=== PATIENT | female | born 1990 | race Caucasian/White ===

== ENCOUNTER 2025-02-01 14:18 | Observation (INO) | payer OTHER ==
[~2025-02-01] VITALS: Ht 162.6 cm; Wt 102.3 kg
[2025-02-01 16:26] LABS: BASOPHILS 0.2 % (0.1-1.2); EOSINOPHILS 0.1 % (0.7-5.8); LYMPHOCYTES 7.6 % (19.3-51.7); MCH 28.1 PG (25.6-32.2); MCHC 33.7 g/dL (32.2-35.5); MCV 83.2 fL (79.4-94.8); MONOCYTES 3.7 % (4.7-12.5); NEUTROPHILS 87.9 % (34.0-71.1); RBC 5.24 M/uL (3.93-5.22)
[2025-02-01 16:42] LABS: ALT (SGPT) 27.0 U/L (14-59); AST (SGOT) 17.0 U/L (15-37); GLOMERULAR FILTRATION RATE,EST 107.0 mL/min (>60); PROTEIN, TOTAL 8.1 g/dL (6.4-8.2); UREA NITROGEN 12.0 mg/dL (7-18)
[2025-02-01] MEDS ORDERED: SEVOFLURANE 250 ML BTL INH ONE (16:57)
[2025-02-01 17:13] LABS: BLOOD/HGB, URINE NEGATIVE (Negative); KETONE, URINE NEGATIVE (Negative); LEUK ESTERASE, URINE NEGATIVE (negative); NITRITE, URINE NEGATIVE (negative)
[2025-02-01] MEDS ORDERED: HYDROmorphone HCL 1 MG/ML SYR IV PRN ×3 (18:45→22:15)
[2025-02-01] MEDS ORDERED: SODIUM CHLORIDE 0.9% 1,000 ML IV ONE (18:45)
[2025-02-01] MEDS ORDERED: LACTATED RINGER'S 1,000 ML IV ONE (20:15)
[2025-02-01] MEDS ORDERED: PIPERACILLIN/TAZOBACTAM 4.5 GM in SODIUM CHLORIDE 0.9% 100 ML IV ONE (20:15)
[2025-02-01] MEDS ORDERED: LIDOCAINE HCL 2% 5 ML SDV ONE (21:09)
[2025-02-01] MEDS ORDERED: ROCURONIUM BROMIDE 50 MG/5 ML SYR ONE (21:09)
[2025-02-01] MEDS ORDERED: fentaNYL citrate 100 MCG/2 ML VIAL ONE (21:09)
[2025-02-01] MEDS ORDERED: MIDAZOLAM HCL 2 MG/2 ML VIAL ONE (21:09)
[2025-02-01] MEDS ORDERED: DEXAMETHASONE SOD PHOS 4 MG/ML VIAL ONE (21:30)
[2025-02-01] MEDS ORDERED: PHENYLEPHRINE HCL IN 0.9% NACL 1 MG/10 ML SYR ONE (21:36)
[2025-02-01] MEDS ORDERED: ACETAMINOPHEN 1,000 MG/100 ML VIAL ONE (21:39)
[2025-02-01] MEDS ORDERED: SUGAMMADEX SODIUM 200 MG/2 ML ML ONE (21:57)
[2025-02-01] MEDS ORDERED: METOCLOPRAMIDE HCL 10 MG/2 ML SDV IV PRN (22:00)
[2025-02-01] MEDS ORDERED: fentaNYL citrate 50 MCG/ML SDV IV PRN (22:00)
[2025-02-01] MEDS ORDERED: IBLOOD GLUCOSE TEST STRIP 1 EA TEST VI PRN (22:00)
[2025-02-01] MEDS ORDERED: NALOXONE HCL 0.4 MG SYR IV PRN ×2 (22:00→22:15)
[2025-02-01] MEDS ORDERED: HYDROCODONE/ACETA 5/325 TAB PO PRN (22:15)
[2025-02-01] MEDS ORDERED: LACTATED RINGER'S 1,000 ML IV SCH (22:15)
[2025-02-01] MEDS ORDERED: ACETAMINOPHEN 325 MG TAB PO PRN (22:15)
--- NOTE | 2025-02-01 22:15 | NUR ---
02/01/25 2218 Mary Albarado PATIENT ARRIVES IN PACU WITH ORAL AIRWAY IN PLACE.
[2025-02-01 23:10] VITALS: BP 151/83
--- NOTE | 2025-02-01 23:40 | NUR ---
PATIENT GIVEN WATER TO SIP, TOLERATING WELL. ASSESSMENT COMPLETED. PATIENT REPORTS 7/10 PAIN BUT MORE COMFORTABLE. SHE DENIES ANY FURTHER NEEDS, IVF CONTINUING TO INFUSE WITHOUT DIFFICULTY. CALL LIGHT IN REACH
[2025-02-02] VITALS (9 sets, daily range): BP systolic 104–125; BP diastolic 67–75
--- NOTE | 2025-02-02 01:39 | NUR ---
ASSISTED PATIENT TO RESTROOM, BACK TO BED WITHOUT DIFFICULTY. IVF CONTINUING TO INFUSE WITHOUT DIFFICULTY. VS OBTAINED AND RECORDED, INTAKE AND OUTPUT DOCUMENTED. GIVEN CRACKERS AND FRESH WATER TO ADVANCE DIET, SHE DENIES ANY NAUSEA. CALL LIGHT IN REACH
--- NOTE | 2025-02-02 03:54 | NUR ---
ROUNDED ON PATIENT, RESPIRATIONS EVEN AND UNLABORED. CPOX AT BEDSIDE, PATIENT ON RA. NO NEEDS IDENTIFIED, CALL LIGHT IN REACH.
--- NOTE | 2025-02-02 05:57 | NUR ---
SCHEDULED MEDICATIONS GIVEN TO PATIENT PER ORDER, VS OBTAINED AND RECORDED. INTAKE AND OUTPUT DOCUMENTED. PATIENT UP TO RESTROOM, BACK TO BED. PRN PAIN MEDICATION GIVEN TO PATIENT ALONG WITH JELLO. PATIENT TOLERATED ALL FOOD AND WATER WELL. PATIENT DENIES OTHER NEEDS, CALL LIGHT IN REACH
[2025-02-02] MEDS ORDERED: PIPERACILLIN/TAZOBACTAM 4.5 GM in DEXTROSE 5% 100 ML IV SCH (06:00)
--- NOTE | 2025-02-02 07:09 | NUR ---
VERBAL REPORT RECEIVED FROM ANDRADE DEL VALLE. PT RESTS IN BED WITH EYES CLOSED, RESP EVEN AND UNLABORED.
--- NOTE | 2025-02-02 08:55 | NUR ---
PT RESTS IN BED AWAKE AND ALERT. EATS BREAKFAST, TOLERATES THIS WELL, DENIES NAUSEA. MOTHER AT BEDSIDE. CALL LIGHT IN REACH, NO REQUESTS AT THIS TIME.
--- NOTE | 2025-02-02 09:25 | NUR ---
pt resting in bed with head up, alert AND AWAKE. PT HAS A VISITOR IN THE ROOM SITTING IN THE CHAIR. PT REPORTS PAIN IS "BEARABLE", NO DIZZSINESS. GOT THE PT A FRESH ICE PACK FOR THE SURGICAL SITE, ALSO FRESH ICE WATER. ROOM CLEANED UP AND TRASH REMOVED. CALL LIGHT WITH THE PT, TV ON, AND THE PT REPORTS NEEDING NOTHING MORE AT THIS TIME.
--- NOTE | 2025-02-02 09:38 | OR ---
[facility] [address] [place], [place] [address] Signed DATE OF OPERATION: 02/01/2025 SURGEON: Robles Gould DO PREOPERATIVE DIAGNOSIS: Acute suppurative appendicitis. POSTOPERATIVE DIAGNOSIS: Acute suppurative appendicitis. PROCEDURE PERFORMED: Laparoscopic appendectomy. ANESTHESIA: General. ESTIMATED BLOOD LOSS: Minimal. DRAINS: None. COMPLICATIONS: None. DESCRIPTION OF PROCEDURE: The patient was brought to the operating room, placed in supine position, and after induction of general endotracheal anesthesia, an appropriate time-out was performed, and all were in agreement. The abdomen was then sterilely shaved, prepped, and draped, subumbilical incision, 5 mm, skin was incised with a scalpel. Utilizing Visiport technique, a trocar was placed intra-abdominally, and the abdomen was insufflated with approximately 4 L of CO2 gas. Scope was placed intra-abdominally, and general exploration was carried out. Some omental adhesions were noted in the right lateral quadrant and around the area of the appendix. Through a separate stab incision inferior to the umbilicus, a 5 mm disposable trocar was placed under direct visualization, and a separate 10 mm disposable trocar was placed along the midclavicular line in the left upper quadrant. Utilizing the LigaSure device, the omental adhesions were then taken down in the right lateral quadrant under direct visualization. The appendix was identified, grasped with a grasping forceps and brought up and inspected. No evidence of perforation was noted. No evidence of abscess was appreciated. Utilizing the Electronically Signed By: ROBLES GOULD DO 02/02/25 0938 PATIENT NAME: JOHN GAGE OPERATIVE REPORT DATE OF : [birth year] REPORT #: [id number] PHYSICIAN: ROBLES GOULD DO PCP: NO PRIMARY CARE PHYSICIAN REPORT IS CONFIDENTIAL AND NOT TO BE RELEASED WITHOUT AUTHORIZATION [facility] [address] [place], [place] [address] Signed LigaSure device, the mesoappendix was then divided sequentially down to the base of the appendix. Satisfactory hemostasis was maintained. Utilizing an Endo-ANGIE stapling device with vascular load placed at the base of the appendix, it was closed, tissue was compressed fully, and the instrument was fired, transected the appendix from the cecum. Satisfactory hemostasis was maintained. No evidence of bleeding was noted. No . The appendix was then placed in an Endobag and brought up through the 10 mm port, passed off the field. The region was then copiously irrigated and dried. No active bleeding sites were apparent. No evidence of purulent material was noted. Some Surgicel powder was then placed in the base of the appendix and mesoappendix. Decision to close was then made. A 10 mm disposable trocar was placed. closure and interrupted 0-Vicryl in a oheazt-li-[id number] fashion. All instrumentation was removed. All gas was allowed to escape from the abdominal cavity. Incision sites were irrigated and dried. The skin was closed with 4-0 Monocryl in a subcuticular fashion. Dermabond dressing was applied. Sterile dressing was applied. The patient tolerated the procedure well and went to recovery room in satisfactory condition. Robles Gould DO RS/MODL /[id number] Copies: ~ Electronically Signed By: ROBLES GOULD DO 02/02/25 0938 PATIENT NAME: JOHN GAGE OPERATIVE REPORT DATE OF : [birth year] REPORT #: [id number] PHYSICIAN: ROBLES GOULD DO PCP: NO PRIMARY CARE PHYSICIAN REPORT IS CONFIDENTIAL AND NOT TO BE RELEASED WITHOUT AUTHORIZATION
[2025-02-02] MEDS ORDERED: LEVOFLOXACIN500 MG PO (10:00)
[2025-02-02] MEDS ORDERED: HYDROCODON-ACE1 EA11 PO (10:00)
[2025-02-02] MEDS ORDERED: ONDANSETRON ODT4 MG PO (10:01)
--- NOTE | 2025-02-02 11:05 | NUR ---
DISCUSSED DISCHARGE INSTRUCTIONS WITH PT AND PT'S MOTHER, BOTH VERBALIZE UNDERSTANDING. VSS. IV REMOVED, TIP INTACT, GAUZE AND COBAN DRESSING APPLIED TO SITE, PT TOLERATED WELL. PT DRESSES SELF. DRESSINGS TO ABDOMEN X3 REMAIN INTACT. PT LEAVES MED-SURG VIA WHEELCHAIR WITH BELONGINGS, PINK DRESS, WHITE SHOES AND CELL PHONE, ESCORTED BY ANDRADE RANDHAWA, TO PRIVATE CAR DRIVEN BY MOTHER. ICE PACK SENT WITH PT.
--- NOTE | 2025-02-05 16:47 | PATH ---
[facility] [address] [facility] [place], [place] [address] Signed SPECIMEN(S): A APPENDIX SPECIMEN SOURCE: A. APPENDIX CLINICAL HISTORY: Acute appendicitis FINAL PATHOLOGIC DIAGNOSIS: Appendix, appendectomy: - Acute appendicitis with transmural inflammation and localized acute peritonitis. - No perforation site identified. - Negative for dysplasia and malignancy. SD MICROSCOPIC EXAMINATION: Histologic sections of all submitted blocks are examined by light microscopy. These findings, together with the gross examination, support the pathologic diagnosis. GROSS DESCRIPTION: The specimen, labeled and designated "Mukesh Gage, appendix," is received in formalin and consists of Specimen: Appendix with mesoappendix. Dimensions: 5.3 x 1.1 x 1 cm. Serosa: Huynh-brown and smooth with areas of purulent material present. Defect: Not grossly identified. Inking: Staple line is inked Blue. Mucosa: huynh-pink and pinpoint to slightly dilated, filled with soft brown fecal material. Fecalith: Not grossly identified. Additional: None. Site Safety Coordinator sections are submitted in (A1). AA (under the direct supervision of a pathologist) The Gross Description was prepared using a voice recognition system. The report was reviewed for accuracy; however, sound-alike word errors, addition and/or deletions may occur. If there are any questions about this report, please contact Client Services. ADDITIONAL NOTES: PATIENT NAME: JOHN GAGE PATHOLOGY DATE OF : [birth year] REPORT #: [id number] PHYSICIAN: KHANHZapya PATHOLOGY PCP: NO PRIMARY CARE PHYSICIAN REPORT IS CONFIDENTIAL AND NOT TO BE RELEASED WITHOUT AUTHORIZATION [facility] [address] [place], [place] [address] Signed Immunohistochemical and/or in situ hybridization studies if performed in this case included appropriate positive controls that reacted as expected. This test was developed and its performance characteristics determined by [facility]. It has not been cleared or approved by the U.S. Food and Drug Administration. The FDA has determined that such clearance or approval is not necessary. This test is used for clinical purposes. It should not be regarded as investigational or for research. [facility] is certified under the Clinical Laboratory Improvement Amendments of 1988 (CLIA) as qualified to perform high complexity clinical laboratory testing. PERFORMING LABORATORY: Technical component was performed by [facility], [address] [place] [id number] (CLIA# [id number]). Professional interpretation was performed by [facility], [address] [place] [id number] (CLIA#: [id number]). Diagnostician: Vesta Medina MD Pathologist Electronically Signed 02/05/2025 Copies: ~ PATIENT NAME: JOHN GAGE PATHOLOGY DATE OF : [birth year] REPORT #: [id number] PHYSICIAN: WENDY PATHOLOGY PCP: NO PRIMARY CARE PHYSICIAN REPORT IS CONFIDENTIAL AND NOT TO BE RELEASED WITHOUT AUTHORIZATION
== END 2025-02-02 11:05 | disposition home or self-care (01) ==
LOC: ED 14:18 → MS 14:20
PROVIDERS: Emergency Medicine; ADMIT Surgery; ATTEND Surgery
PROC: 0DTJ4ZZ Resection of Appendix, Percutaneous Endoscopic Approach (ICD-10-PCS; principal; 2025-02-01 21:03)
DX: K35.30 Acute appendicitis with localized peritonitis, without perforation or gangrene (principal)
CPT/HCPCS: 00840; 36415; 74177; 80053; 81003; 83690; 85025; 88304; 94762; 96361; 96365; 96366; 96375; 99285-25; G0378; J0131; J0165; J1100; J1171; J2003; J2250; J2405; J2543; J2704; J3010; J3490; J7030; J7121; Q9967